=== PATIENT | female | born 1985 | race American Indian/Alaskan Native ===

== ENCOUNTER 2016-12-20 21:41 | Emergency (ER) | payer MEDICAID ==
[2016-12-20] MEDS ORDERED: Sodium Chloride 0.9% 1,000 ML IV STA (22:03)
--- NOTE | 2016-12-20 22:14 | ED PDOC ---
Arrival/HPI - General Chief Complaint: Headache Time Seen by Provider: 12/20/16 21:54 Historian: Patient - History of Present Illness Narrative History of Present Illness (Text): 12/20/16 22:10 31yr old female presents today with bodyaches, fever and headache since this morning. pt states yesterday she was just having bodyaches. pt states today she woke up with throbbing right sided frontal headache. denies pain with rom of neck. denies sick contacts. denies cough. denies abdominal pain. denies urinary symptoms. no n/v. denies . pt states she took excedrin for fever without improvement. pt states she has hx of migranes but has never f/u with specialist. no cp or sob. no other complaints. Time/Duration: Other (1 day) Symptom Onset: Gradual Symptom Course: Worsening Past Medical History - Provider Review Nursing Documentation Reviewed: Yes - Travel History Have you recently traveled outside [place] w/in the past 3 mons?: No - Tetanus Immunization Tetanus Immunization: Unknown - Psychiatric Hx Substance Use: No - Surgical History Hx Section: Yes (x1) Family/Social History - Physician Review Nursing Documentation Reviewed: Yes Family/Social History: Unknown Family HX Smoking Status: Light Smoker < 10 Cigarettes Daily Hx Alcohol Use: Yes Frequency of alcohol use: Socially Hx Substance Use: No Allergies/Home Meds Allergies/Adverse Reactions: Allergies shellfish derived Allergy (Verified 12/20/16 21:43) ANAPHYLAXIS Review of Systems - Review of Systems Constitutional: Fatigue, Fevers ENT: absent: Sore Throat, Sinus Congestion Respiratory: absent: SOB, Cough Cardiovascular: absent: Chest Pain, Palpitations Gastrointestinal: absent: Abdominal Pain, Nausea, Vomiting Genitourinary Female: absent: Dysuria, Frequency, Hematuria Musculoskeletal: Other (bodyaches). absent: Arthralgias, Neck Pain (no neck stiffness) Skin: absent: Rash, Pruritis Neurological: Headache. absent: Dizziness Physical Exam Vital Signs Reviewed: Yes Vital Signs Temp Pulse Resp BP Pulse Ox 12/20/16 23:18 99.8 F H 96 H 18 115/63 97 12/20/16 22:25 103.2 F H 12/20/16 21:46 103.2 F H 100 H 20 134/91 H 100 Temperature: Febrile Blood Pressure: Normal Pulse: Tachycardic Respiratory Rate: Normal Appearance: Positive for: Well-Appearing, Non-Toxic, Comfortable Pain Distress: None Mental Status: Positive for: Alert and Oriented X 3 - Systems Exam Head: Present: Atraumatic Pupils: Present: PERRL Extroacular Muscles: Present: EOMI Conjunctiva: Present: Normal Ears: Present: Normal, NORMAL TM Mouth: Present: Moist Mucous Membranes, Normal Lips, Normal Tounge. No: Drooling, Trismus Pharnyx: No: ERYTHEMA, TONSILS ENLARGED, Peritonsilar Swelling, Uvular Deviation , Muffled/Hoarse Voice, Strider Nose (External): Present: Atraumatic Nose (Internal): Present: Normal Inspection Neck: Present: Normal Range of Motion, Trachea Midline. No: Meningeal Signs, MIDLINE TENDERNESS, Paraspinal Tenderness, Lymphadenopathy Respiratory/Chest: Present: Clear to Auscultation, Good Air Exchange. No: Respiratory Distress, Accessory Muscle Use Cardiovascular: Present: Regular Rate and Rhythm, Normal S1, S2. No: Murmurs Abdomen: No: Tenderness, Distention, Rebound, Guarding Back: Present: Normal Inspection Upper Extremity: Present: Normal ROM Lower Extremity: Present: Normal ROM Neurological: Present: GCS=15, Speech Normal, Motor Func Grossly Intact, Normal Sensory Function, Gait Normal Skin: Present: Warm, Dry, Normal Color. No: Rashes Psychiatric: Present: Alert, Oriented x 3 Medical Decision Making ED Course and Treatment: 12/20/16 22:29 31yr old female with 103 fever. c/o headache and bodyaches. hx of frequent headaches. pt is non toxic. no distress. no meningeal signs (negative brudzinski and Kernig signs) pt given NS IV BOLUS toradol IV tylenol PO cbc wnl cmp; K; 3.4 lactate: wnl cxr: no infiltrate UA: + ketones, no leukocytes rapid strep: negative rapid flu: negative Head CT: FINDINGS: Brain: No intracranial hemorrhage. No mass. No definite edema. Ventricles: No hydrocephalus. Bones/joints: No acute fracture. Soft tissues: Unremarkable. Sinuses: No acute sinusitis. Mastoid air cells: No mastoid effusion. Orbits: Unremarkable as visualized. IMPRESSION: 1. No acute intracranial abnormality. 12/21/16 00:14 pt reassessment; pt states she is feeling a lot better. states still with slight headache. pt with frequent headaches for years but never f/u with specialist. will add reglan and benadryl. no meningeal signs. blood cultures and urine cultures pending. will give rocephin IV will send MONO SPOT. case discussed in depth with dr. nation. 12/21/16 01:18 pt feeling better will d/c home. vitals stable. ambulating with steady gait. no distress. impression; fever increase fluids motrin every 6 hours as needed for pain/fever reduction Keflex; 1 capsule 4 times daily x 7 days follow up with the primary care physician TOMORROW. Follow up with the neurologist within the next 2 days. return immediately if symptoms worsen,persist or if new symptoms develop. - Lab Interpretations Lab Results: 12/20/16 22:32 12/20/16 22:32 Lab Results 12/20/16 22:50: Urine Color Yellow, Urine Appearance Clear, Urine pH 7.0, Ur Specific [place] 1.015, Urine Protein Negative, Urine Glucose (UA) Negative, Urine Ketones Trace H, Urine Blood Negative, Urine Nitrate Negative, Urine Bilirubin Negative, Urine Urobilinogen 0.2, Ur Leukocyte Esterase Negative 12/20/16 22:32: Influenza Typ A,B (EIA) Negative for flu a/b 12/20/16 22:32: Grp A Beta Strep Ag Negative 12/20/16 22:32: pO2 26 L, VBG pH 7.37, VBG pCO2 48.0, VBG HCO3 27.7, VBG Total CO2 29.2 H, VBG O2 Sat (Calc) 60.1, VBG Base Excess 1.7, VBG Potassium 3.3 L, Sodium 133.0, Chloride 101.0, Glucose 85, Lactate 1.1, FiO2 21.0, Venous Blood Potassium 3.3 L 12/20/16 22:32: WBC 5.0, RBC 4.27, Hgb 11.1 L, Hct 33.6 L, MCV 78.7 L, MCH 26.0 , MCHC 33.0, RDW 15.5 H, Plt Count 172, MPV 11.4 H, Gran % 52.1, Lymph % (Auto) 35.0, [place] % (Auto) 12.7 H, Eos % (Auto) 0.0 L, Baso % (Auto) 0.2, Gran # 2.59, Lymph # 1.7, [facility] # 0.6, Eos # 0.0, Baso # 0.01 12/20/16 22:32: Sodium 135, Chloride 98, Potassium 3.4 L, Carbon Dioxide 27, Anion Gap 13, BUN 12, Creatinine 0.7, Est GFR ( Amer) > 60, Est GFR (Non- Af Amer) > 60, Random Glucose 81, Calcium 8.6, Total Bilirubin 0.3, AST 33, ALT 42, Alkaline Phosphatase 72, Total Protein 6.9, Albumin 3.5, Globulin 3.4, Albumin/Globulin Ratio 1.0 L - RAD Interpretation Radiology Orders: 12/20/16 22:02 CHEST PORTABLE [RAD] Stat 12/20/16 23:37 HEAD W/O CONTRAST [CT] Stat - Medication Orders Current Medication Orders: Discontinued Medications Acetaminophen (Tylenol 325mg Tab) 975 mg PO STAT STA Stop: 12/20/16 22:04 Last Admin: 12/20/16 22:25 Dose: 975 mg Diphenhydramine HCl (Benadryl) 25 mg PO STAT STA Stop: 12/21/16 00:15 Last Admin: 12/21/16 00:42 Dose: 25 mg Sodium Chloride (Sodium Chloride 0.9%) 1,000 mls @ 999 mls/hr IV .Q1H1M STA Stop: 12/20/16 23:03 Last Admin: 12/20/16 22:25 Dose: 999 mls/hr Ceftriaxone Sodium (Rocephin 1 Gram Ivpb) 1 gm in 100 mls @ 200 mls/hr IVPB STAT STA PRN Reason: Protocol Stop: 12/21/16 00:41 Last Admin: 12/21/16 00:42 Dose: 200 mls/hr Ketorolac Tromethamine (Toradol) 30 mg IVP STAT STA Stop: 12/20/16 22:04 Last Admin: 12/20/16 22:25 Dose: 30 mg Metoclopramide HCl (Reglan) 10 mg IVP STAT STA Stop: 12/21/16 00:41 Last Admin: 12/21/16 00:47 Dose: 10 mg Potassium Chloride (K-Dur 20 Meq Er Tab) 20 meq PO STAT STA Stop: 12/20/16 23:32 Last Admin: 12/21/16 00:42 Dose: 20 meq Disposition/Present on Arrival - Present on Arrival Any Indicators Present on Arrival: No History of DVT/PE: No History of Uncontrolled Diabetes: No Urinary Catheter: No History of Decub. Ulcer: No History Surgical Site Infection Following: None - Disposition Have Diagnosis and Disposition been Completed?: Yes Diagnosis: Fever, Headache Disposition: HOME/ ROUTINE Disposition Time: 01:14 Patient Plan: Discharge Patient Problems: Current Active Problems Problem Status Onset Fever Acute Headache Acute Condition: GOOD Discharge Instructions (ExitCare): Fever in Adults (ED) Additional Instructions: increase fluids motrin every 6 hours as needed for pain/fever reduction Keflex; 1 capsule 4 times daily x 7 days follow up with the primary care physician TOMORROW. Follow up with the neurologist within the next 2 days. return immediately if symptoms worsen,persist or if new symptoms develop. Prescriptions: Acetaminophen/Butalbital/Caf [Fioricet] 1 tab PO Q6 PRN #10 tab PRN Reason: Headache Cephalexin [Keflex] 500 mg PO QID #28 capsule Ibuprofen [Motrin] 600 mg PO Q6H PRN #20 tab PRN Reason: pain/fever reduction Referrals: Kahlil Hudson MD [Non-Staff] - Follow up with primary Rigoberto Vega MD [Staff Provider] - Follow up with primary Forms: [facility] (Yakut), WORK NOTE
[2016-12-20 22:37] LABS: VENOUS BLOOD GAS BASE EXCESS 1.7 mmol/L (0.0-2.0); VENOUS BLOOD PH 7.37 (7.32-7.43)
[2016-12-20 22:38] LABS: BASO # 0.01 K/mm3 (0.0-2.0); BASO % 0.2 % (0.0-3.0); GRAN # 2.59 (1.4-6.5); GRAN % 52.1 % (50.0-68.0); HEMATOCRIT 33.6 % (36.0-48.0); LYMPH # 1.7 (1.2-3.4); MEAN CELL VOLUME 78.7 fl (80.0-105.0); MEAN PLATELET VOLUME 11.4 fl (7.0-11.0); MONO # 0.6 (0.1-0.6); MONO % 12.7 % (1.0-6.0); RED CELL DISTRIBUTION WIDTH 15.5 % (11.5-14.5)
[2016-12-20 23:01] LABS: ALKALINE PHOSPHATASE 72 U/L (38-126); ALT/SGPT 42 U/L (7-56); AST/SGOT 33 U/L (14-36); BILIRUBIN,TOTAL 0.3 mg/dL (0.2-1.3); BLOOD UREA NITROGEN 12 mg/dL (7-21); CALCIUM 8.6 mg/dL (8.4-10.5); CARBON DIOXIDE 27 mmol/L (21-33); CHLORIDE 98 mmol/L (95-110); GFR AFRICAN-AMERICAN > 60; GLUCOSE,RANDOM 81 mg/dL (70-110); POTASSIUM 3.4 mmol/L (3.6-5.0); SODIUM 135 mmol/L (132-148); TOTAL PROTEIN 6.9 g/dL (5.8-8.3)
[2016-12-20 23:15] LABS: URINE BILIRUBIN NEGATIVE (NEGATIVE); URINE BLOOD NEGATIVE (NEGATIVE); URINE GLUCOSE (UA) NEGATIVE (NEGATIVE); URINE KETONE TRACE mg/dL (NEGATIVE); URINE LEUKOCYTE ESTERASE NEGATIVE Leu/uL (NEGATIVE); URINE PROTEIN NEGATIVE mg/dL (<30 mg/dL); URINE UROBILINOGEN 0.2 E.U./dL (<1 E.U./dL)
[2016-12-20 23:18] LABS: URINE APPEARANCE CLEAR (CLEAR); URINE COLOR YELLOW (YELLOW)
[2016-12-20 23:21] VITALS: RESP 18
[2016-12-20] MEDS ORDERED: Potassium Chloride 20 mEq ER Tab PO STA (23:31)
--- NOTE | 2016-12-21 00:03 | CT ---
EXAM: CT Head Without Intravenous Contrast CLINICAL HISTORY: 31 years old, female; Pain; Headache TECHNIQUE: Axial computed tomography images of the head/brain without intravenous contrast. All CT scans at this facility use one or more dose reduction techniques, viz.: automated exposure control; ma/kV adjustment per patient size (including targeted exams where dose is matched to indication; i.e. head); or iterative reconstruction technique. COMPARISON: No relevant prior studies available. FINDINGS: Brain: No intracranial hemorrhage. No mass. No definite edema. Ventricles: No hydrocephalus. Bones/joints: No acute fracture. Soft tissues: Unremarkable. Sinuses: No acute sinusitis. Mastoid air cells: No mastoid effusion. Orbits: Unremarkable as visualized. IMPRESSION: 1. No acute intracranial abnormality.
[2016-12-21] MEDS ORDERED: cefTRIAXone 1 gm 1 GM/100 ML BAG IVPB STA (00:12)
[2016-12-21 01:23] VITALS: BP 116/84; PULSE 85; TEMP 98.4; O2SAT 100
--- NOTE | 2016-12-21 07:24 | RAD ---
HISTORY: fever COMPARISON: No prior. FINDINGS: LUNGS: No active disease PLEURA: No significant pleural effusion identified, no pneumothorax apparent. CARDIOVASCULAR: Normal. OSSEOUS STRUCTURES: No significant abnormalities. VISUALIZED UPPER ABDOMEN: Normal. OTHER FINDINGS: None. IMPRESSION: No active disease. Specifically ,no infiltrate
== END 2016-12-21 01:33 | disposition home or self-care (01) ==
LOC: ED 21:41
DX: R51 Headache (principal); R50.9 Fever, unspecified
CPT/HCPCS: 70450; 71010; 80053; 81003; 82803; 85025; 86308; 87040; 87070; 87430; 87804; 96374; 99285; J0696; J1885; J2765; J7040